=== PATIENT | male | born 1980 | race African-American/Black ===

== ENCOUNTER 2018-12-29 14:01 | Emergency (ER) | payer OTHER ==
[~2018-12-29] VITALS: Ht 177.8 cm; Wt 93.0 kg
[2018-12-29] MEDS ORDERED: NAPROSYN500 MG PO (15:54)
[2018-12-29] MEDS ORDERED: TRAMADOL 50 MG50 MG PO (15:54)
[2018-12-29 16:20] VITALS: BP 118/67
== END 2018-12-29 16:21 | disposition home or self-care (01) ==
LOC: ER 14:01
DX: S46.811A Strain of other muscles, fascia and tendons at shoulder and upper arm level, right arm, initial encounter (principal); S00.83XA Contusion of other part of head, initial encounter; F17.210 Nicotine dependence, cigarettes, uncomplicated; Y04.8XXA Assault by other bodily force, initial encounter; Y92.89 Other specified places as the place of occurrence of the external cause; Y93.89 Activity, other specified; Y99.8 Other external cause status